=== PATIENT | female | born 1990 | race Caucasian/White ===

== ENCOUNTER 2023-08-02 07:34 | Emergency (ER) | payer MEDICAID ==
[~2023-08-02] VITALS: Ht 165.1 cm; Wt 70.3 kg
[2023-08-02 07:53] VITALS: BP 133/93; TEMP 98.4
[2023-08-02] MEDS ORDERED: LIDO30AD10 TP (08:12)
[2023-08-02] MEDS ORDERED: CYCL5TAB PO (08:12)
[2023-08-02] MEDS ORDERED: NAPR-1164 PO (08:12)
[2023-08-02] MEDS ORDERED: ACETAMINOPHEN ES 500 MG TABLET ONE (08:13)
[2023-08-02] MEDS ORDERED: CYCLOBENZAPRINE 10 MG TABLET ONE (08:13)
[2023-08-02 08:21] VITALS: O2SAT 99
[2023-08-02] MEDS ORDERED: CYCLOBENZAPRINE 10 MG TABLET PO ONE (08:30)
[2023-08-02] MEDS ORDERED: ACETAMINOPHEN 325 MG TABLET PO ONE (08:30)
== END 2023-08-02 08:22 | disposition home or self-care (01) ==
LOC: ER 07:37
DX: S33.5XXA Sprain of ligaments of lumbar spine, initial encounter (principal); V89.2XXA Person injured in unspecified motor-vehicle accident, traffic, initial encounter; Y93.89 Activity, other specified; Y92.89 Other specified places as the place of occurrence of the external cause; Y99.8 Other external cause status